=== PATIENT | male | born 1950 | race Caucasian/White ===

== ENCOUNTER 2019-06-04 13:16 | Inpatient (IN) | payer MEDICARE, OTHER ==
[~2019-06-04] VITALS: Ht 188 cm; Wt 112.0 kg
[2019-07-08] VITALS (9 sets, daily range): BP systolic 115–139; BP diastolic 70–86; PULSE 63–95; TEMP 97.7–98
[2019-07-08] MEDS ORDERED: CRESTOR40 MG PO (08:49)
[2019-07-08] MEDS ORDERED: GLUCOSAMINE 1000 PO (08:50)
[2019-07-08] MEDS ORDERED: TOPROL XL 50MG50 MG PO (08:50)
[2019-07-08] MEDS ORDERED: MASON NATURAL1200 MG PO (08:51)
[2019-07-08] MEDS ORDERED: NATURAL VITAM1000 MG PO (08:51)
[2019-07-08] MEDS ORDERED: ASPIRIN E.C. 8181 MG PO (08:51)
[2019-07-08] MEDS ORDERED: NATURAL FLAX1000 MG PO (08:52)
[2019-07-08] MEDS ORDERED: NORVASC 5MG5 MG/TAB PO (08:54)
[2019-07-08] MEDS ORDERED: MULTI VITAMINS1 TAB PO (08:55)
--- NOTE | 2019-07-08 10:08 | NUR ---
Initial visit; Patient thanked Program Clinician for looking in on him and offering God's blessings.
--- NOTE | 2019-07-08 15:25 | NUR ---
PATIENT BACK IN ROOM 329 POST OP. ORIENTED BUT DROWSY. VSS. DENIES PAIN. RTS DRESSING IS CD&I WITH ABDUCTOR SLING INPLACE. PATIENT IS ABLE TO MOVE FINGERS TO RUE. SCD'S TO BLE. LIQUIDS AT BEDISDE. IV FLUIDS INFUSING VIA PUMP INTO LEFT HAND. HEAD TO TOE WNL. FAMILY AT BEDSIDE. CALL LIGHT IN REACH.
--- NOTE | 2019-07-08 15:54 | NUR ---
JOSE L met with the patient and the patient's , Avani to complete initial assessment. The patient lives in [place] with Avani. The patient has a walker, if needed and reports independence with ADLs. The patient's PCP is Dr. Boyle and patient receives medications from [facility] with no difficulties. The patient does not have advanced directives in the EMR but reports they are completed and designate, Avani. The patient plans to return home upon discharge. There are no additional needs at this time.
--- NOTE | 2019-07-08 20:00 | NUR ---
Patient in bed, has visitor at bedside. Is alert and oriented x4. Has abductor sling to right arm, reports no pain at this time. CSM intact. IV site to left hand without redness or swelling, IVF capped and IV antibiotic given at this time.
--- NOTE | 2019-07-08 21:30 | NUR ---
Patient has been up to void, then ambulated in hallway without problem.
--- NOTE | 2019-07-09 02:30 | NUR ---
Pt sitting at edge of bed, requests water. Denies pain to right shoulder at this time. Voiding without problem.
[2019-07-09 04:10] VITALS: BP 140/80; PULSE 73; TEMP 97.7
[2019-07-09] MEDS ORDERED: NORCO 325 MG-7.1 TAB PO (06:49)
--- NOTE | 2019-07-09 06:50 | NUR ---
sitting up on side of bed eating breakfast, bedside shift report received from ADELA Arellano, will plan discharge later this am
--- NOTE | 2019-07-09 07:50 | NUR ---
full assessment completed, see interventions for further info, occlusive dressing to right shoulder removed, incision with jose miguel and is CD&I, covered with aquacel dressing, has good sensation, movement and pulses to right arm, denies pain or needs
[2019-07-09 08:08] LABS: HEMOGLOBIN 12.7 g/dl (13.5-18.0)
[2019-07-09 08:09] LABS: HEMATOCRIT 36.7 % (42.0-52.0)
[2019-07-09 08:35] VITALS: BP 123/80; PULSE 69; TEMP 97.8
--- NOTE | 2019-07-09 09:05 | NUR ---
physical therapy in to work with patient, ambulated out in [place] and then back to room
--- NOTE | 2019-07-09 09:30 | NUR ---
occupational therapy in and worked with patient and assisted him with getting dressed and use of abduction sling
--- NOTE | 2019-07-09 10:15 | NUR ---
up in recliner watching TV and visiting with , discharge instructions given to patient and his , verbalizes understanding
--- NOTE | 2019-07-09 11:45 | NUR ---
antibiotic infused, INT discontinued and discharged ambulatory accompanied by PAINTER DRUM
== END 2019-07-09 11:45 | disposition home or self-care (01) | DRG 483 ==
LOC: JCC 07-08 07:30
PROVIDERS: ADMIT Orthopaedic Surgery
PROC: 0RRJ0JZ Replacement of Right Shoulder Joint with Synthetic Substitute, Open Approach (ICD-10-PCS; principal; 2019-07-08 13:25)
DX: M19.011 Primary osteoarthritis, right shoulder (principal); Z88.5 Allergy status to narcotic agent; Z79.82 Long term (current) use of aspirin
CPT/HCPCS: A4619; A9284; C1713; C1776; J0171; J0690; J1100; J2250; J2405; J2704; J3010; J7120

== ENCOUNTER 2019-08-15 13:58 | Emergency (ER) | payer MEDICARE, OTHER ==
[~2019-08-15] VITALS: Ht 188 cm; Wt 111.4 kg
[~2019-08-15 13:58] MED LIST: ASPIRIN E.C. 8181 MG PO; CRESTOR40 MG PO; GLUCOSAMINE 1000 PO; MASON NATURAL1200 MG PO; MULTI VITAMINS1 TAB PO; NATURAL FLAX1000 MG PO; NATURAL VITAM1000 MG PO; NORCO 325 MG-7.1 TAB PO; NORVASC 5MG5 MG/TAB PO; TOPROL XL 50MG50 MG PO
[2019-08-15 14:17] VITALS: BP 161/90; TEMP 97.5
[2019-08-15 15:54] LABS: COLLECTION METHOD CLEAN CATCH
[2019-08-15 16:03] LABS: MUCOUS Present /lpf; PH 6 (5-8); SQUAMOUS EPITHELIAL 0-2 /hpf; URINE APPEARANCE Hazy; URINE BACTERIA None Seen /hpf; URINE BILIRUBIN Negative (NEGATIVE); URINE BLOOD Negative (NEGATIVE); URINE COLOR Yellow; URINE GLUCOSE Negative (NEGATIVE); URINE KETONE Negative (NEGATIVE); URINE LEUKOCYTE ESTERASE Negative (NEGATIVE); URINE NITRATE Negative (NEGATIVE); URINE PROTEIN(semi-quant) Negative (NEGATIVE)
[2019-08-15] MEDS ORDERED: FLEXERIL 1010 MG/TAB PO (16:15)
[2019-08-15] MEDS ORDERED: LIDODERM 5% PATC1 EA TP (16:15)
[2019-08-15] MEDS ORDERED: ULTRAM 50MG TAB50 MG PO (16:17)
[2019-08-15 16:50] VITALS: PULSE 72
== END 2019-08-15 16:50 | disposition home or self-care (01) ==
LOC: COL.ER 13:58
PROVIDERS: Physician Assistant
DX: S33.9XXA Sprain of unspecified parts of lumbar spine and pelvis, initial encounter (principal); M41.9 Scoliosis, unspecified; I25.10 Atherosclerotic heart disease of native coronary artery without angina pectoris; I10 Essential (primary) hypertension; Z90.89 Acquired absence of other organs; Z79.82 Long term (current) use of aspirin; Z95.1 Presence of aortocoronary bypass graft; X50.0XXA Overexertion from strenuous movement or load, initial encounter
CPT/HCPCS: J3010

== ENCOUNTER → 2020-02-12 | Outpatient (CLI) | payer MEDICARE, OTHER ==
[~2020-02-12] MED LIST changes: +FLEXERIL 1010 MG/TAB PO; +LIDODERM 5% PATC1 EA TP; +ULTRAM 50MG TAB50 MG PO
== END ==
LOC: COL.RAD 08:10
DX: K76.0 Fatty (change of) liver, not elsewhere classified (principal)

== ENCOUNTER 2020-08-09 22:25 | Emergency (ER) | payer MEDICARE, OTHER ==
[~2020-08-09] VITALS: Ht 188 cm; Wt 112.7 kg
[~2020-08-09 22:25] MED LIST changes: +DUO-KAPS1 CAP PO; -MULTI VITAMINS1 TAB PO; -NATURAL VITAM1000 MG PO; +VITAMINC1000TA PO
[2020-08-09 22:27] VITALS: TEMP 98.6
[2020-08-09 23:00] LABS: COLLECTION METHOD CLEAN CATCH
[2020-08-09 23:14] LABS: ANION GAP 7 mmol/L (7-16); BLOOD UREA NITROGEN 14 mg/dL (9-20); CALCIUM 9.2 mg/dL (8.4-10.2); CARBON DIOXIDE 28 mmol/L (22-30); CHLORIDE 100 mmol/L (98-107); CREATININE, serum 0.79 (0.66-1.25); GLUCOSE 110 mg/dL (74-106); POTASSIUM 4.3 mmol/L (3.4-5.0); SODIUM 134 mmol/L (137-145)
[2020-08-09 23:17] LABS: BASO # 0.1 (0.0-0.2); BASO % 0.5 % (0.0-2.0); EOS # 0.4 (0.0-0.7); EOS % 4.3 % (0-4.0); GRAN # 6.1 (1.4-6.5); GRAN % 63.5 % (42.2-75.2); HEMATOCRIT 38.2 % (42.0-52.0); LYMPH # 2.1 (1.2-3.4); LYMPH % 22.2 % (20.0-51.0); MEAN CELL VOLUME 94 fl (80.0-100.0); MEAN CORPUSCULAR HEMOGLOBIN 32 pg (27.0-31.0); MEAN CORPUSCULAR HGB CONC 34 g/dl (33.0-37.0); MEAN PLATELET VOLUME 10.8 fl (7.4-10.4); MONO # 0.9 (0.1-0.6); MONO % 9.2 % (1.7-9.3); PLATELET COUNT 171 K/mm3 (130-400); RED BLOOD COUNT 4.05 M/mm3 (4.20-5.60); REDCELL DISTRIBUTION WIDTH-CV 12.8 % (11.5-14.5)
[2020-08-09 23:18] LABS: MUCOUS Present /lpf; PH 6 (5-8); SQUAMOUS EPITHELIAL None Seen /hpf; URINE APPEARANCE Clear; URINE BACTERIA None Seen /hpf; URINE BILIRUBIN Negative (NEGATIVE); URINE BLOOD Negative (NEGATIVE); URINE COLOR Yellow; URINE GLUCOSE Negative (NEGATIVE); URINE KETONE Negative (NEGATIVE); URINE LEUKOCYTE ESTERASE Negative (NEGATIVE); URINE NITRATE Negative (NEGATIVE); URINE PROTEIN(semi-quant) Negative (NEGATIVE); URINE RBC 0-2 /hpf; URINE WBC 0-2 /hpf
[2020-08-09 23:28] LABS: TROPONIN-I < 0.012 ng/mL (0.000-0.035)
[2020-08-10 00:05] VITALS: BP 133/87; PULSE 73
== END 2020-08-10 00:05 | disposition home or self-care (01) ==
LOC: COL.ER 22:25
PROVIDERS: Emergency Medicine
DX: I45.5 Other specified heart block (principal); I10 Essential (primary) hypertension; Z95.1 Presence of aortocoronary bypass graft; Z90.89 Acquired absence of other organs; Z88.5 Allergy status to narcotic agent; Z79.82 Long term (current) use of aspirin

== ENCOUNTER 2020-08-20 06:16 | Day surgery (SDC) | payer MEDICARE, OTHER ==
[~2020-08-20] VITALS: Ht 188 cm; Wt 109.8 kg
[2020-08-20] MEDS ORDERED: CRESTOR40 MG PO (06:55)
[2020-08-20] MEDS ORDERED: KAPSPARGO SPRIN25 MG PO (06:57)
[2020-08-20] MEDS ORDERED: TOPROL XL 25MG25 MG PO (06:58)
[2020-08-20 07:27] VITALS: BP 123/87; PULSE 73; TEMP 98.3
[2020-08-20 08:55] VITALS: BP 102/75; PULSE 70; TEMP 97.4
--- NOTE | 2020-08-20 08:55 | NUR ---
Pt returns from Endo procedure via cart. Pt ambulates from cart to recliner without complication and with RN assist. Pt alert and oriented. Pt's remains in room. Monitors on and alarms set. Call light within reach. Pt requests Diet Coke and nothing else--he's going to breakfast after this. Report received from ADELA Damon. Dr. Boyle in to visit with patient and . Pt denies any pain or nausea.
[2020-08-20 09:00] VITALS: BP 110/78; PULSE 62
--- NOTE | 2020-08-20 09:10 | NUR ---
Pt taking drink well. Pt desires discharge.
[2020-08-20 09:15] VITALS: BP 123/82; PULSE 55
--- NOTE | 2020-08-20 09:31 | NUR ---
Discharge instructions given to patient and . All questions answered to their satisfaction. Handed to them are a thank you card, discharge instructions, diagnosis information, and procedural photos.
--- NOTE | 2020-08-20 09:40 | NUR ---
Pt transferred out of hospital via wheelchair and this RN assist to private vehicle driven by .
== END 2020-08-20 09:40 | disposition home or self-care (01) ==
LOC: SDCO 06:16
DX: Z12.11 Encounter for screening for malignant neoplasm of colon (principal); D12.2 Benign neoplasm of ascending colon; K57.30 Diverticulosis of large intestine without perforation or abscess without bleeding; I48.0 Paroxysmal atrial fibrillation; R55 Syncope and collapse; I25.10 Atherosclerotic heart disease of native coronary artery without angina pectoris; I10 Essential (primary) hypertension; G47.33 Obstructive sleep apnea (adult) (pediatric); M19.90 Unspecified osteoarthritis, unspecified site; Z20.822 Contact with and (suspected) exposure to COVID-19; Z79.82 Long term (current) use of aspirin; Z79.899 Other long term (current) drug therapy; E78.00 Pure hypercholesterolemia, unspecified; Z88.5 Allergy status to narcotic agent; Z96.652 Presence of left artificial knee joint; Z96.612 Presence of left artificial shoulder joint; Z96.611 Presence of right artificial shoulder joint; Z80.0 Family history of malignant neoplasm of digestive organs
CPT/HCPCS: J2704; J3010; J7120

== ENCOUNTER → 2020-09-02 | Outpatient (CLI) | payer MEDICARE, OTHER ==
[~2020-09-02] MED LIST changes: +CEPHALEXIN500 M1 PO; +ELIQUIS 5MG PO; +ENTRESTO 24 MG1 EACH PO; +KAPSPARGO SPRIN25 MG PO; +LIPITOR 80MG80 MG PO; +TOPROL XL 25MG25 MG PO
== END ==
LOC: COL.CARD 06:38
DX: R55 Syncope and collapse (principal)

== ENCOUNTER 2020-10-12 09:10 | Day surgery (SDC) | payer MEDICARE, OTHER ==
[~2020-10-12] VITALS: Ht 188.1 cm; Wt 111.2 kg
[2020-10-12] VITALS (10 sets, daily range): BP systolic 120–146; BP diastolic 74–89; PULSE 60–80; TEMP 97.7–98.4
[~2020-10-12 09:10] MED LIST changes: -CEPHALEXIN500 M1 PO; -ELIQUIS 5MG PO; -ENTRESTO 24 MG1 EACH PO; -LIPITOR 80MG80 MG PO
[2020-10-12 09:58] LABS: HEMOGLOBIN 12.7 g/dl (13.5-18.0); MEAN CELL VOLUME 91 fl (80.0-100.0); MEAN CORPUSCULAR HEMOGLOBIN 32 pg (27.0-31.0); MEAN CORPUSCULAR HGB CONC 35 g/dl (33.0-37.0); PLATELET COUNT 153 K/mm3 (130-400); REDCELL DISTRIBUTION WIDTH-CV 12.6 % (11.5-14.5)
[2020-10-12 10:00] LABS: HEMATOCRIT 36.5 % (42.0-52.0)
[2020-10-12 10:06] LABS: INR 1.2 (0.8-3.0); PROTHROMBIN TIME 13.3 SECONDS (9.7-12.8)
[2020-10-12 10:09] LABS: CALCIUM 9.2 mg/dL (8.4-10.2); CREATININE, serum 0.74 (0.66-1.25); POTASSIUM 4.2 mmol/L (3.4-5.0)
--- NOTE | 2020-10-12 10:44 | NUR ---
SEE MERGE FOR ALL MEDICATION ADMINISTRATION TIMES, INTRA AND POST SEDATION ASSESSMENTS
--- NOTE | 2020-10-12 19:21 | NUR ---
Patient transferred up from lab intern. Pacemaker was placed. Pt. C/O pain 10/10 at the surgery site. Ice pack placed, and tramadol given. Pt. states that he is feeling alot better. Post op vitals completed, pts. vital signs are stable. at the bedside. Education given regarding patient's medication. Report given to ADELA [place]. Call light within reach.
--- NOTE | 2020-10-12 21:50 | NUR ---
ALERT AND OX4. LT ARM IN SLING AND DSG TO UPPER CHEST C/D/I. DENIES PAIN, SOA, OR DIZZY. LAC FLUSHED. TELE PACED 70'S. ROOM AIR. GOOD APPETITE. ANTICPATES DC TOMORROW. NEEDS MET. POC DISCUSSED.
[2020-10-13 03:37] VITALS: BP 133/81; PULSE 69; TEMP 98.3
--- NOTE | 2020-10-13 05:55 | NUR ---
RESTED THROUGH THE NIGHT WITHOUT INCIDENT. NEEDS MET.
--- NOTE | 2020-10-13 07:00 | NUR ---
Patient lying in bed awake at this time. Very anxious to get home. Patient does not C/O of any pain, discomfort, or futher needs at this time. Will continue to monitor. Call light within reach.
[2020-10-13 07:14] LABS: BASO % 0.5 % (0.0-2.0); EOS # 0.3 (0.0-0.7); EOS % 3.6 % (0-4.0); GRAN # 5.7 (1.4-6.5); GRAN % 66.5 % (42.2-75.2); HEMATOCRIT 37.3 % (42.0-52.0); HEMOGLOBIN 12.6 g/dl (13.5-18.0); LYMPH # 1.8 (1.2-3.4); LYMPH % 20.8 % (20.0-51.0); MEAN CELL VOLUME 93 fl (80.0-100.0); MEAN CORPUSCULAR HEMOGLOBIN 31 pg (27.0-31.0); MEAN CORPUSCULAR HGB CONC 34 g/dl (33.0-37.0); MEAN PLATELET VOLUME 10.5 fl (7.4-10.4); MONO # 0.7 (0.1-0.6); MONO % 8.2 % (1.7-9.3); PLATELET COUNT 160 K/mm3 (130-400); RED BLOOD COUNT 4.03 M/mm3 (4.20-5.60); REDCELL DISTRIBUTION WIDTH-CV 12.6 % (11.5-14.5)
[2020-10-13 07:33] LABS: CALCIUM 8.8 mg/dL (8.4-10.2); CREATININE, serum 0.61 (0.66-1.25)
[2020-10-13 07:36] VITALS: BP 123/76; PULSE 68; TEMP 97.6
[2020-10-13 11:30] VITALS: BP 120/80; PULSE 69; TEMP 97.6
[2020-10-13] MEDS ORDERED: TOPROL XL 25MG25 MG PO (11:58)
[2020-10-13] MEDS ORDERED: LIPITOR 80MG80 MG PO (11:58)
[2020-10-13] MEDS ORDERED: CEPHALEXIN500 M1 PO (11:58)
[2020-10-13] MEDS ORDERED: ELIQUIS 5MG PO (11:59)
[2020-10-13] MEDS ORDERED: ENTRESTO 24 MG1 EACH PO (11:59)
--- NOTE | 2020-10-13 12:48 | NUR ---
First visit from the grout machine tender. No needs right now.
--- NOTE | 2020-10-13 13:25 | NUR ---
Patient meets discharge criteria. IV DC'D catherter intact, no signs of phlebitis. Patient anxious to go home. Discharge instructions/education given. All questions answered. Vital signs stable. Patient and deny any further questions or concerns. Patient escorted out of the building by [facility] Staff. Patient was ambulatory.
== END 2020-10-13 13:00 | disposition home or self-care (01) ==
LOC: COL.CAR 09:10 → MEDICAL 13:31 → COL.CAR 10-13 13:00
PROVIDERS: Internal Medicine Cardiovascular Disease
DX: I49.5 Sick sinus syndrome (principal); R55 Syncope and collapse; I42.8 Other cardiomyopathies; Z95.1 Presence of aortocoronary bypass graft; I25.10 Atherosclerotic heart disease of native coronary artery without angina pectoris; I48.91 Unspecified atrial fibrillation; Z80.0 Family history of malignant neoplasm of digestive organs; E78.00 Pure hypercholesterolemia, unspecified; Z88.5 Allergy status to narcotic agent; Z79.82 Long term (current) use of aspirin; R94.31 Abnormal electrocardiogram [ECG] [EKG]
CPT/HCPCS: OP; C1769; C1894; C1898; C1900; C2621; J0690; J2250; J3010; J7030; Q9967

== ENCOUNTER 2024-01-29 12:35 | Emergency (ER) | payer MEDICARE, OTHER ==
[~2024-01-29] VITALS: Ht 188 cm; Wt 102.3 kg
[~2024-01-29 12:35] MED LIST changes: +CEPHALEXIN500 M1 PO; +ELIQUIS 5MG PO; +ENTRESTO 24 MG1 EACH PO; +LIPITOR 80MG80 MG PO
[2024-01-29 12:42] VITALS: TEMP 97.9
[2024-01-29 15:15] VITALS: BP 115/74; PULSE 77
== END 2024-01-29 15:15 | disposition home or self-care (01) ==
LOC: COL.ER 12:35
DX: L76.22 Postprocedural hemorrhage of skin and subcutaneous tissue following other procedure (principal); Z79.01 Long term (current) use of anticoagulants

== ENCOUNTER 2024-02-22 05:54 | Day surgery (SDC) | payer MEDICARE, OTHER ==
[~2024-02-22] VITALS: Ht 188 cm; Wt 99.6 kg
[~2024-02-22 05:54] MED LIST changes: +LR 1,000 ML IV SCH; +Ondansetron 4 MG/2 ML VIAL IV PRN
[2024-02-22 06:03] VITALS: BP 111/78; PULSE 62; TEMP 97.5
[2024-02-22] MEDS ORDERED: COZAAR 50MG50 MG/TAB PO (06:18)
[2024-02-22] MEDS ORDERED: IRON TABLETS325 MG PO (06:19)
--- NOTE | 2024-02-22 06:41 | NUR ---
The patient ambulated back to [place] [facility] independently using a steady gait and appeared to tolerate the activity well. Vital signs obtained. Consent signed. 20G IV started in right hand on second attempt, LR infusing without difficulty. Assessment completed. Home medications reconcilled. The patient's , Avani, was brought back to be at his bedside. Warm blanket provided. Denies any further needs at this time.
[2024-02-22] MEDS ORDERED: Lidocaine PF 2% (20 MG/ML) 5 ML VIAL ONE (07:32)
[2024-02-22 09:05] VITALS: BP 105/78; PULSE 69; TEMP 97.5
[2024-02-22 09:20] VITALS: BP 109/73; PULSE 61
--- NOTE | 2024-02-22 09:38 | NUR ---
Pt returns to [facility] 1 via cart at 0905. Bedside handoff received from Shadia CHAPMAN. Transfers to recliner chair with assist of 2, gait steady. IV fluids infusing through left hand IV site without complications. VSS. at bedside. Crackers and apple juice given. Dr. Boyle speaks with prior to patients arrival back to room. 914- Discharge instructions and education given to patient and . Questions answered. 917- Pt up and getting dressings. 927- IV removed. 34- Pt down to wifes car via w/c. Denies any complaints at this time. No further questions.
== END 2024-02-22 09:34 | disposition home or self-care (01) ==
LOC: SDCO 05:54
DX: Z12.11 Encounter for screening for malignant neoplasm of colon (principal); Z86.010 Personal history of colon polyps; Z80.0 Family history of malignant neoplasm of digestive organs; D12.2 Benign neoplasm of ascending colon; D12.4 Benign neoplasm of descending colon; D12.5 Benign neoplasm of sigmoid colon; I49.5 Sick sinus syndrome; K57.30 Diverticulosis of large intestine without perforation or abscess without bleeding; Z79.01 Long term (current) use of anticoagulants; Z79.02 Long term (current) use of antithrombotics/antiplatelets; Z95.0 Presence of cardiac pacemaker
CPT/HCPCS: J2704; J7120